=== PATIENT | female | born 1950 | race African-American/Black ===

== ENCOUNTER → 2020-10-27 | Outpatient (CLI) | payer MEDICARE ==
[~2020-10-27] MED LIST: DENOSUMAB 60 MG/ML 1 ML SYRINGE SQ NR
[2020-10-27 10:57] VITALS: BP 155/80; PULSE 99; RESP 18; TEMP 98.6
== END | disposition home or self-care (01) ==
LOC: PROCWHC3 10:40
PROVIDERS: ATTEND Family Medicine
DX: M85.89 Other specified disorders of bone density and structure, multiple sites (principal)
CPT/HCPCS: 96372; J0897

== ENCOUNTER → 2023-11-27 | Outpatient (CLI) | payer MEDICARE ==
--- NOTE | 2023-12-01 14:40 | MM ---
Reason for Exam: Screening (asymptomatic). Last mammogram was performed 1 year(s) and 2 month(s) ago. Patient History: Menarche at age 17. First Full-Term at age 19. Left ovary removed at age 23. Right ovary removed at age 23. Hysterectomy at age 23. Ovarian cancer, age 20. Patient used Estrogen and Progesterone for 10 years. Mother had breast cancer, age 72. Risk Values: Mara 5 year model risk: 2.2%. NCI Lifetime model risk: 5.1%. Prior Study Comparison: 09/05/2021 Bilateral Screening Mammogram, [facility]. 09/27/2022 Bilateral Screening Mammogram, [facility]. Tissue Density: The breasts are extremely dense, which lowers the sensitivity of mammography. Findings: Analyzed By CAD. The pattern is symmetrical. Pattern appears stable. Benign vascular calcification is present bilaterally. No suspicious groups of microcalcifications, spiculated or lobular masses, architectural distortion or other secondary signs of malignancy are mammographically apparent. Overall Assessment: Benign, BI-RAD 2 Management: Screening Mammogram of both breasts in 1 year. A negative mammogram report should not preclude additional follow up of suspicious palpable abnormalities. Patient should continue monthly self breast exam. A clinical breast exam by your physician is recommended on an annual basis and results should be correlated with mammographic findings. Electronically signed and approved by: Damian Anguiano D.O. Radiologis
== END | disposition home or self-care (01) ==
LOC: RADMAMWWP 10:34
PROVIDERS: ATTEND Internal Medicine
DX: Z12.31 Encounter for screening mammogram for malignant neoplasm of breast (principal); Z80.3 Family history of malignant neoplasm of breast
CPT/HCPCS: 77063; 77067